=== PATIENT | female | born 1995 | race Caucasian/White ===

== ENCOUNTER 2017-02-17 16:12 | Emergency (ER) | payer OTHER ==
[~2017-02-17] VITALS: Ht 160 cm; Wt 53.0 kg
[2017-02-17 16:14] VITALS: Ht 160 cm; Wt 53.0 kg
[2017-02-17] MEDS ORDERED: MECLIZINE 12.5 MG TAB PO ONE (17:30)
[2017-02-17] MEDS ORDERED: IBUPROFEN 600 MG TAB PO ONE (17:30)
--- NOTE | 2017-02-17 18:13 | RADRPT ---
PROCEDURE: XR Chest. CLINICAL INDICATION: Shortness of breath TECHNIQUE: AP view of the chest was obtained. COMPARISON: None. FINDINGS: The cardiomediastinal silhouette is within normal limits. The lungs are clear. No pleural effusion or pneumothorax is identified. Visualized osseous structures appear intact. IMPRESSION: No evidence of active cardiopulmonary disease. RPTAT: VV .Bonilla Magana MD, Date Time Electronically viewed and signed by .Bonilla Magana MD, on 02/17/2017 18:12 .O/
[2017-02-17 18:16] LABS: ADD SCAN DIFF NO
[2017-02-17 18:18] LABS: BASOPHILS % 0.4 % (0.0-2.0); EOSINOPHILS # 0.1 10^3/ul (0.0-0.5); EOSINOPHILS % 2.2 % (0.0-7.0); HEMATOCRIT 38.1 % (37.0-47.0); HEMOGLOBIN 12.7 g/dl (12.0-16.0); LYMPHOCYTES # 2.6 10^3/ul (0.8-2.9); LYMPHOCYTES % 50.7 % (15.0-51.0); MEAN CORPUSCULAR HEMOGLOBIN 31.5 pg (29.0-33.0); MEAN CORPUSCULAR HGB CONC 33.3 g/dl (32.0-37.0); MEAN CORPUSCULAR VOLUME 94.5 fl (82.0-101.0); MONOCYTE # 0.4 10^3/ul (0.3-0.9); MONOCYTES % 7.9 % (0.0-11.0); NEUTROPHILS % 38.6 % (39.0-77.0); PLATELET COUNT 235 10^3/UL (140-415); RED BLOOD COUNT 4.03 10^6/ul (4.20-5.40); RED CELL DISTRIBUTION WIDTH 12.2 % (11.5-14.5); WHITE BLOOD COUNT 5.1 10^3/ul (4.8-10.8)
[2017-02-17 18:22] LABS: URINE BLOOD (Dip) POC 1+ (NEGATIVE)
[2017-02-17 18:38] LABS: CALCIUM 9.3 mg/dl (8.4-10.2); CREATININE 0.51 mg/dl (0.44-1.00); POTASSIUM 4.1 mmol/L (3.5-5.1)
[2017-02-17] MEDS ORDERED: MECL12.574 PO (20:18)
[2017-02-17] MEDS ORDERED: IBUP-1542 PO (20:18)
[2017-02-17 20:29] VITALS: BP 105/65; PULSE 75; RESP 18; TEMP 97.5
--- NOTE | 2017-02-17 21:09 | ERD ---
ER Documentation Chief Complaint Date/Time DATE: 02/17/17 TIME: 20:48 Chief Complaint UPPER BACK PAIN WITH DIZZINESS SINCE YESTERDAY HPI Patient is a 21-year-old female who presents to the emergency department for numerous concerns including upper back pain, dizziness, fatigue and shortness of breath. Patient states that her symptoms started yesterday. Patient states the pain is localized to her thoracic region. Patient denies any radiation of the pain. Patient denies any recent falls or trauma. Patient denies any saddle anesthesia, urinary incontinence, stool incontinence, night pain. Patient also reports dizziness. She states that her dizziness is episodic. Patient states the dizziness is worse with any movements including getting out of bed. Patient states that it feels as if her head is spinning. Patient also reports shortness of breath with deep inspiration. She denies any headache, chest pain, left upper extremity pain, diaphoresis or loss consciousness. Patient denies any nausea, vomiting, abdominal pain, fever or chills. Patient states her last menstrual period was a year ago, patient has Nexplanon. She denies any vaginal bleeding or rectal bleeding. ROS All systems reviewed and are negative except as per history of present illness. Medications Home Meds Active Scripts Ibuprofen* (Motrin*) 600 Mg Tab, 600 MG PO Q6, #30 TAB Prov:ESTHELA MCKEON PA-C 02/17/17 Meclizine Hcl* (Antivert*) 12.5 Mg Tab, 12.5 MG PO Q6H Y for DIZZINESS, #20 TAB Prov:ESTHELA MCKEON PA-C 02/17/17 Allergies Allergies: Coded Allergies: No Known Allergy (Unverified , 02/17/17) PMhx/Soc Medical and Surgical Hx: pt denies Medical Hx, pt denies Surgical Hx History of Surgery: No Anesthesia Reaction: No Hx Neurological Disorder: No Hx Respiratory Disorders: No Hx Cardiac Disorders: No Hx Psychiatric Problems: No Hx Miscellaneous Medical Probl: No Hx Alcohol Use: No Hx Substance Use: No Hx Tobacco Use: No Smoking Status: Never smoker Physical Exam Vitals Vital Signs Date Time Temp Pulse Resp B/P Pulse Ox O2 Delivery O2 Flow Rate FiO2 02/17/17 20:29 97.5 75 18 105/65 99 Room Air 02/17/17 16:14 97.5 79 18 98/59 98 Physical Exam GENERAL: Well-developed, well-nourished female. Appears in no acute distress. Speaking in full sentences. HEAD: Normocephalic, atraumatic. No deformities or ecchymosis. EYE: Pupils equal, round, and reactive to light. EOMs intact. No conjunctival erythema. No eye discharge. ENT: External ear without any masses or tenderness. TM visualized bilaterally, non-erythematous, non-bulging. Nasal mucosa pink with no discharge. Oropharynx is pink without any tonsillar erythema or exudates. No uvula deviation. No kissing tonsils. NECK: Supple. No meningismus. Normal ROM of the neck. LUNG: Clear to auscultation bilaterally. No rhonchi, wheezing, rales or coarse breath sounds. HEART: Regular rate and rhythm. No murmurs, rubs or gallops. BACK: No midline tenderness. EXTREMITIES: Equal pulses bilaterally. No peripheral clubbing, cyanosis or edema. No unilateral leg swelling. NEUROLOGIC: Alert and oriented x3, cooperative. Mood and affect appropriate to situation. Cranial nerves II through XII are grossly intact. Normal speech. Motor exam: 5/5 strength in upper and lower extremities. Sensory exam: Sensation intact to light touch on all four extremities. Steady gait. No pronator drift. SKIN: Normal color. Warm and dry. No rashes or lesions. Result Diagram: 02/17/17 1748 02/17/17 1748 Results 24 hrs Laboratory Tests Test 02/17/17 17:48 02/17/17 18:25 White Blood Count 5.110^3/ul Red Blood Count 4.0310^6/ul Hemoglobin 12.7g/dl Hematocrit 38.1% Mean Corpuscular Volume 94.5fl Mean Corpuscular Hemoglobin 31.5pg Mean Corpuscular Hemoglobin Concent 33.3g/dl Red Cell Distribution Width 12.2% Platelet Count 22824^3/UL Mean Platelet Volume 10.0fl Neutrophils % 38.6% Lymphocytes % 50.7% Monocytes % 7.9% Eosinophils % 2.2% Basophils % 0.4% Nucleated Red Blood Cells % 0.0/100WBC Neutrophils # 2.010^3/ul Lymphocytes # 2.610^3/ul Monocytes # 0.410^3/ul Eosinophils # 0.110^3/ul Basophils # 0.010^3/ul Nucleated Red Blood Cells # 0.010^3/ul Sodium Level 143mmol/L Potassium Level 4.1mmol/L Chloride Level 109mmol/L Carbon Dioxide Level 29mmol/L Anion Gap 9 Blood Urea Nitrogen 13mg/dl Creatinine 0.51mg/dl Glucose Level 71mg/dl Calcium Level 9.3mg/dl Bedside Urine pH (LAB) 5.5 Bedside Urine Protein (LAB) Negative Bedside Urine Glucose (UA) Negative Bedside Urine Ketones (LAB) Negative Bedside Urine Blood 1+ Bedside Urine Nitrite (LAB) Negative Bedside Urine Leukocyte Esterase (L Negative Current Medications Medications (Trade) Dose Ordered Sig/Ruben Route PRN Reason Start Time Stop Time Status Last Admin Dose Admin Meclizine HCl (Antivert) 25 mg ONCE ONCE PO 02/17/17 17:30 02/17/17 17:31 DC 02/17/17 17:39 Ibuprofen (Motrin) 600 mg ONCE ONCE PO 02/17/17 17:30 02/17/17 17:31 DC 02/17/17 17:39 Procedures/MDM ED COURSE: The patient was stable throughout ED course. I kept the patient and/or family informed of laboratory and diagnostic imaging results throughout the ED course. DIAGNOSTIC IMAGING: Read by radiologist. DIAGNOSTIC IMAGING REPORT Patient: HARPER MAYS : 1995 Age: 21 Sex: F MR #: [id number] DOS: 02/17/17 1723 Ordering MD: ESTHELA MCKEON PA-C Location: [facility] Room/Bed: PROCEDURE: XR Chest. CLINICAL INDICATION: Shortness of breath TECHNIQUE: AP view of the chest was obtained. COMPARISON: None. FINDINGS: The cardiomediastinal silhouette is within normal limits. The lungs are clear. No pleural effusion or pneumothorax is identified. Visualized osseous structures appear intact. IMPRESSION: No evidence of active cardiopulmonary disease. RPTAT: VV .Bonilla Magana MD, Date Time Electronically viewed and signed by .Bonilla Magana MD, MD on 02/17/2017 18:12 .O/ CC: ESTHELA MCKEON PA-C MEDICATIONS GIVEN: Meclizine, ibuprofen Patient tolerated medication well with no adverse reactions. Patient reported improvement in pain. MEDICAL DECISION MAKING: This is a 21-year-old female who presents with numerous concerns including upper back pain, weakness, fatigue, shortness of breath.. Vital signs were reviewed. Patient was afebrile. Patient was not hypoxic. Patient states that the room is spinning. Patient reported that the dizziness is worse with sitting up in bed. The patient denied any recent URIs. Full neuro exam was normal. CBC showed no evidence of systemic infection or severe anemia. BMP showed no evidence of electrolyte abnormalities, renal failure. UA showed no evidence of acute infection. Urine was negative. Patient reported improvement in dizziness upon receiving Meclizine. Patient reported improvement in back pain upon receiving Ibuprofen. CXR was unremarkable. Given these findings, the patient symptom's is most consistent with back pain benign paroxysmal positional vertigo. I have a much lower clinical concern for intracranial hemorrhage, cerebral infarct, intracranial mass, multiple sclerosis, labyrinthitis, acute otitis media, UTI, pyelonephritis, spinal fracture, epidural abscess, epidural hematoma, cauda equina syndrome, anemia, or electrolyte disturbances. PRESCRIPTIONS: Meclizine Zofran DISCHARGE: At this time, patient is stable for discharge and outpatient management. Patient provided with a copy of all imaging studies and blood work obtained today. I have instructed the patient to follow-up with his/her primary care physician in 1-2 days. If symptoms persist, patient may need to see a specialist for further examinations and testing. I have instructed the patient to promptly return to the ER at any time for any new or worsening symptoms including increased increased pain, fever, nausea, vomiting, numbness, weakness , slurred speech, LOC. The patient and/or family expressed understanding of and agreement with this plan. All questions were answered. Home care instructions were provided. Departure Diagnosis: Primary Impression: Vertigo Additional Impression: Back pain Back pain location: thoracic back pain Chronicity: acute Back pain laterality: midline Qualified Code: M54.6 - Acute midline thoracic back pain Condition: Stable Patient Instructions: Back Pain (Acute Or Chronic), Vertigo, Unspecified Additional Instructions: Call your primary care doctor TOMORROW for an appointment during the next 1-2 days.See the doctor sooner or return here if your condition worsens before your appointment time. ESTHELA MCKEON PA-C February 17, 2017 21:09
== END 2017-02-17 20:19 | disposition home or self-care (01) ==
LOC: FTE 16:12
DX: R42 Dizziness and giddiness (principal)
CPT/HCPCS: 71010; 80048; 81003; 85025; Z7502; Z7610

== ENCOUNTER 2018-02-17 15:28 | Emergency (ER) | END 2018-02-17 17:53 | disposition home or self-care (01) ==

== ENCOUNTER 2018-02-24 16:54 | Emergency (ER) | END 2018-02-24 19:28 | disposition home or self-care (01) ==

== ENCOUNTER 2018-05-16 20:00 | Inpatient (IN) | END 2018-05-19 19:35 | disposition home or self-care (01) | DRG 778 ==

== ENCOUNTER 2018-06-20 15:45 | Outpatient (CLI) | END 2018-06-20 20:45 | disposition home or self-care (01) ==

== ENCOUNTER 2018-07-13 21:24 | Outpatient (CLI) | END 2018-07-14 02:20 | disposition home or self-care (01) ==

== ENCOUNTER 2018-07-21 11:00 | Inpatient (IN) | END 2018-07-23 15:35 | disposition home or self-care (01) | DRG 807 ==